=== PATIENT | female | born 1985 | race Asian ===

== ENCOUNTER 2017-11-21 10:21 | Emergency (ER) | payer OTHER ==
--- NOTE | 2017-11-21 12:43 | UC ---
- HPI Summary HPI Summary: Pt. is a 32-year-old female who presents to the urgent care for a possible miscarriage. She states her last normal menstrual cycle was the first week of October. She states she took a home test last week which was positive. She states a few days ago she had a bowel movement and noticed blood in the toilet which she believes came from her vagina. History of a miscarriage. A1. Patient also complains of some lower abdominal soreness and low back pain. She denies fever, chills. Admits to nausea without vomiting. Denies dysuria. Symptoms are moderate in severity. No current modifying factors. She is unsure of her blood type but states she believes it is Rh positive and states she does not believe she received rhogam her last . Also notes increased fatigue and nausea without vomiting. - History of Current Complaint Chief Complaint: UCGU Stated Complaint: HCG BLOOD TEST Time Seen by Provider: 11/21/17 11:44 Hx Obtained From: Patient Pain Intensity: 0 - Assessment Hx Now: Yes Hx Hysterectomy: No - Allergies/Home Medications Allergies/Adverse Reactions: Allergies Allergy/AdvReac Type Severity Reaction Status Date / Time No Known Allergies Allergy Verified 11/21/17 11:53 Home Medications: Home Medications Pnv No.95/Ferrous Fum/Folic AC [ Multivitamin Tablet] 1 tab PO DAILY [History Confirmed 11/21/17] PMH/Surg Hx/FS Hx/Imm Hx Previously Healthy: Yes - Surgical History Surgical History: None - Social History Occupation: Unemployed Lives: With Family Alcohol Use: None Substance Use Type: None Smoking Status (MU): Never Smoked Tobacco Review of Systems Gastrointestinal: Abdominal Pain, Nausea Genitourinary: Abnormal Bleeding All Other Systems Reviewed And Are Negative: Yes Physical Exam - Physical Exam Triage Information Reviewed: Yes Vital Signs Reviewed: Yes Appearance: Positive: Well-Appearing - Pt. sitting on exam table in NAD. Skin: Positive: Warm, Dry Head/Face: Positive: Normal Head/Face Inspection Eyes: Positive: Conjunctiva Clear Neck: Positive: Supple Abdomen Description: Positive: Nontender, Soft Neurological: Positive: Normal, CN Intact II-III Psychiatric: Positive: Affect/Mood Appropriate Course/Dx - Course Course Of Treatment: Pt. presenting for possible early . She is afebrile with stable vital signs. Pt. has a benign abd. exam. She has no vaginal bleeding or discharge today. Pt. recently moved the area and has no medical history in the system. She does admit t oa small amount of vaginal bleeding several days ago. Pt. states she believes her blood type is Rh positive. Urine is positive. U/A shows small ketones, protein and leukocytes, will send for culture. Pt. was able to get a copy of recent blood work from her last electronically and blood type is O+. Case discussed with Dr. Bean who recommends ordering U/S today in to evaluate for IUP and obtain labs that will return tomorrow. Labs drawn. U/S per radiology shows IMPRESSION: INTRAUTERINE GESTATION AT 6 WEEKS 3 DAYS BASED ON CROWN-RUMP LENGTH WITH. CONFIRMATION OF CARDIAC PULSATIONS. SMALL PERIGESTATIONAL HEMATOMA. LEFT OVARIAN CYST. SUGGEST FOLLOW-UP, reading per radiology. Results discussed. will call pt. tomorrow for lab results. Advised to call OB tomorrow for a sooner apt. Advised to increase fluids and rest. Eat small frequent meals. Can try vitamin B6 for nausea. To go to the ER for abdominal pain, bleeding or if concerned. Pt. understands and agrees with plan. - Differential Diagnosis/HQI/PQRI: Spontaneous , Ectopic , First Trimester Bleeding, Rh Incompatibility, Vaginal Bleeding - Diagnoses Provider Diagnoses: Early stage of Discharge - Sign-Out/Discharge Documenting (check all that apply): Patient Departure - Discharge Plan Condition: Good Disposition: HOME Patient Education Materials: Nausea and Vomiting in (ED), ( ED) Referrals: No Primary Care Phys,NOPCP [Primary Care Provider] - Naz Milton MD [Medical Doctor] - Additional Instructions: Call the OB office tomorrow to schedule a sooner appointment Increase fluids and rest Eat small frequent meals Can try taking over the counter vitamin B6 for nausea Will call tomorrow with lab results Go to the ER for abdominal pain, vaginal bleeding or if concerned - Billing Disposition and Condition Condition: GOOD Disposition: Home
--- NOTE | 2017-11-21 14:00 | RAD ---
INDICATION: Early with bleeding COMPARISON: None TECHNIQUE: Transvaginal scans were obtained for early evaluation FINDINGS: Transvaginal scans show an early intrauterine gestation with identification of the pole, yolk sac and cardiac pulsations of 111 bpm. The crown-rump length corresponds to a 6 week 3 day gestation and the sac size corresponds to 6 week 6 day gestation. There is a hypoechoic collection adjacent to the sac likely related to a. Gestational hematoma. This measures 3.0 x 1.5 x 3.0 cm. There is a small amount of free fluid left adnexa. The right ovary measures 2.4 x 1.0 x 1.6 centers in the left 4.7 x 4.0 x 4.7 cm. There is a cyst in left ovary measuring 4.1 x 3.3 x 3.9 cm and a probable involuting left ovarian cyst measuring approximately 2 cm. IMPRESSION: INTRAUTERINE GESTATION AT 6 WEEKS 3 DAYS BASED ON CROWN-RUMP LENGTH WITH CONFIRMATION OF CARDIAC PULSATIONS. SMALL PERIGESTATIONAL HEMATOMA. LEFT OVARIAN CYST. SUGGEST FOLLOW-UP.
[2017-11-21 16:25] LABS: ABS Basophils 0 10^3/ul (0-0.2); ABS Eosinophils 0 10^3/ul (0-0.6); ABS Lymphocytes 1.5 10^3/ul (1.0-4.8); ABS Monocytes 0.6 10^3/ul (0-0.8); ABS Neutrophils 7.4 10^3/ul (1.5-7.7); ABS Nucleated RBC 0 10^3/ul; Eosinophil % 0.3 % (0-6); Hematocrit 39 % (35-47); Hemoglobin 13.5 g/dl (12.0-16.0); Lymphocyte % 16.1 % (25-47); Mean Corpuscular HGB Conc 35 g/dl (31-36); Mean Corpuscular Hemoglobin 32 pg (27-31); Mean Corpuscular Volume 91 fL (80-97); Mean Platelet Volume 9.6 um3 (7.4-10.4); Nucleated Red Blood Cells % 0; Platelet Count 227 10^3/ul (150-450); Red Blood Count 4.29 10^6/ul (4.00-5.40); Red Cell Distribution Width 13 % (10.5-15); White Blood Count 9.5 10^3/ul (3.5-10.8)
--- NOTE | 2017-11-22 11:17 | UC ---
- Progress Note Progress Note: [facility]ari [id number] progesteron 20 no change ljj 11/22/2017 Course/Dx - Diagnoses Provider Diagnoses: Early stage of Discharge - Sign-Out/Discharge Documenting (check all that apply): Post-Discharge Follow Up - Discharge Plan Condition: Good Disposition: HOME Patient Education Materials: Nausea and Vomiting in (ED), ( ED) Referrals: Naz Milton MD [Medical Doctor] - No Primary Care Phys,NOPCP [Primary Care Provider] - Additional Instructions: Call the OB office tomorrow to schedule a sooner appointment Increase fluids and rest Eat small frequent meals Can try taking over the counter vitamin B6 for nausea Will call tomorrow with lab results Go to the ER for abdominal pain, vaginal bleeding or if concerned - Billing Disposition and Condition Condition: GOOD Disposition: Home
== END 2017-11-21 14:55 | disposition home or self-care (01) ==
LOC: UCEAST 10:21
DX: O99.89 Other specified diseases and conditions complicating pregnancy, childbirth and the puerperium (principal); R10.30 Lower abdominal pain, unspecified; M54.5 Low back pain; R53.83 Other fatigue; O21.9 Vomiting of pregnancy, unspecified
CPT/HCPCS: 36415; 76817; 81003; 84144; 84443; 84702; 85025; 86900; 86901; 87077; 87086; 99201; G0463

== ENCOUNTER 2018-07-16 14:32 | Inpatient (IN) | payer OTHER ==
[2018-07-16] MEDS ORDERED: Dinoprostone* 10 MG VAG.SUPP VAGINAL ONE (15:55)
[2018-07-16] MEDS ORDERED: Buffered Lidocaine 1% SYRIN* 1 ML/SYRINGE INTRADERM ONE (15:55)
[2018-07-16] MEDS ORDERED: Lactated Ringers 1000 ML Bag* 1,000 ML IV ONE (15:55)
[2018-07-16] MEDS ORDERED: Lactated Ringers 1000 ML Bag* 1,000 ML IV SCH (16:00)
--- NOTE | 2018-07-16 16:08 | HP ---
General Information - Reason for Visit Patient scheduled for cervical ripening and induction after growth ultrasound 07/15 showed increased cord doppler ratio of 3.3 and decrease in size percentile from 35%ile @ 32 weeks to 25%ile @ 39 weeks with lagging AC measurement. - General Information Maternal Age: 33 Grav: 2 Para: 0 SAB: 1 IEA: 0 Estimated Due Date: 07/16/18 Determined By: LMP Maternal Blood Type and Rh: O Positive - Results this Serology/RPR Result: Non-Reactive Rubella Result: Immune HBsAg Result: Negative HIV Result: Negative GBS Culture Result: Positive Past Medical History Delivery History: See Records Delivery History Comment: No previous deliveries Pertinent Past Medical History: Non-Contributory Pertinent Past Surgical History: None Pertinent Family History: Non-Contributory Family History Comment: cancer - Antepartal Records Antepartal Records: Reviewed, Complicated by: - GBS positive Review of Systems Constitutional: Comfortable CV Complaint: No Respiratory: Shortness of Breath: No Gastrointestinal: No Nausea/Vomiting, Normal Bowel Movement Genitourinary: No Dysuria, No Bleeding, No Leaking Fluid Musculoskeletal: No Complaint Neurological: No Headache, No Visual Changes Exam Allergies/Adverse Reactions: Allergies No Known Allergies Allergy (Verified 11/21/17 11:53) BP 126/75 T 97.9 HR 92 O2 100 RR 20 - Measurements Height: 5 ft 3 in Weight: 135 lb Weight in lbs: 135.883150 Body Mass Index (BMI): 23.9 Pre- Weight: 101 lb Weight Gained This : 34 lbs and 0 ozs - Exam Breast: Breast Exam Deferred CVA: No CVA Tenderness Extremities: No Edema Heart: Normal Rhythm/Heart Sounds HEENT: No Significant Findings Lungs: Clear Bilaterally Rectal: Rectal Exam Deferred Reflexes: DTR 2+, - - no clonus - Abdominal Exam Abdomen Exam: Non-Tender - Ultrasound/Biophysical Profile Ultrasound Status: Not Done Targeted Exam Findings Estimated Weight: 7lb Cervical Exam: Closed Effacement: Thick Station: -1 Presenting Part: Vertex Membrane Status: Intact Bleeding/Discharge: None EFM Findings - External Monitor Findings Baseline Heart Rate: 135 External Monitor Findings: Accelerations Present, No Pattern of Variable or Late Decelerations, Variability Moderate Contractions: None Assessment/Plan - Assessment IUP @ 39+6 weeks gestation for cervical ripening and induction of labor. Suspected IUGR with lagging AC measurement, decrease in estimated percentile of growth and increased cord doppler ratio. Intact membranes. No evidence metabolic acidemia. - Obstetrical Risk Factors Obstetrical Risk Factors: GBS Positive, IUGR - Plan Plan: Induction, Cervical Ripening, Admit - Anticipate Vaginal Delivery Plan Comment: Admit to L&D. PARQ discussion of Cervidil for cervical ripening, all questions answered and patients in agreement. Patient planning epidural for pain management. Will hold off on initiating IV access until active labor or ROM and begin GBS prophylaxis. Anticipate SVB. - Date/Time of Admission Date of Admission: 07/16/18 Time of Admission: 16:10
[2018-07-16] MEDS ORDERED: Promethazine INJ(RESTRICTED)* 25 MG/ML 1 ML VIAL IM PRN (21:20)
[2018-07-16] MEDS ORDERED: Nalbuphine* 10 MG/ML 1 ML VIAL IM PRN (21:20)
--- NOTE | 2018-07-16 21:26 | PN ---
Progress Note - Progress Note Date of Service: 07/16/18 Note: Patient comfortable, no cramps or contractions. Discussed PRN Nubain/Phenergan and order placed. Instructed on overnight monitoring and plan for Cervidil removal by 0700 tomorrow with continued cervical ripening vs IOL. Questions answered, patient verbalized understanding.
[2018-07-17] MEDS ORDERED: Penicillin G Potassium IV* 5,000,000 UNITS in NS 0.9% 100 ML* 100 ML IVPB ONE (09:09)
--- NOTE | 2018-07-17 09:14 | PN ---
Progress Note - Progress Note Date of Service: 07/17/18 Note: S: Pt rested overnight. Cervidil removed at 0700. Denies feeling any uterine contractions. Feeling a little pessimistic about anything happening at this time O: BP 107/71 HR 79 T 98.5 FHT 130bpm. Moderate variability. +Accels. No decels UCs q 2-3 mild VE: external os, 1cm Internal os closed/long/vtx -1 A: IUP at 40-1/7 here for induction for elevated S/D ratio on cord dopplers No evidence of metabolic acidemia P: Given uterine contraction pattern trial low dose pitocin for cervical ripening
[2018-07-17] MEDS ORDERED: Oxytocin in LR* 20 UNITS/1,000 ML BAG IVPB SCH (10:00)
[2018-07-17 10:56] LABS: ABS Basophils 0 10^3/ul (0-0.2); ABS Eosinophils 0.1 10^3/ul (0-0.6); ABS Lymphocytes 1.2 10^3/ul (1.0-4.8); ABS Monocytes 0.7 10^3/ul (0-0.8); ABS Neutrophils 9.4 10^3/ul (1.5-7.7); ABS Nucleated RBC 0 10^3/ul; Eosinophil % 0.5 %; Hematocrit 40 % (35-47); Lymphocyte % 10.6 %; Mean Corpuscular HGB Conc 35 g/dl (31-36); Mean Corpuscular Hemoglobin 34 pg (27-31); Mean Corpuscular Volume 96 fL (80-97); Mean Platelet Volume 9.7 fL (7.4-10.4); Nucleated Red Blood Cells % 0.1; Platelet Count 185 10^3/ul (150-450); Red Blood Count 4.17 10^6/ul (4.00-5.40); Red Cell Distribution Width 14 % (10.5-15); White Blood Count 11.4 10^3/ul (3.5-10.8)
--- NOTE | 2018-07-17 17:10 | PN ---
Progress Note - Progress Note Date of Service: 07/17/18 Note: Late entry. Evaluation happened at 1600 S: Pt had been ambulating and now trying the ball. Reports some cramping and occ stronger UCs. No bloody show. No LOF. Feeling like "nothing is happening yet" O: BP 91/50 HR 76 RR 20 T 98 FHT 130bpm. Moderate variability. +Accels. No decels UCs q 2-3 min on IV Pitocin VE pt refuses at this time A: IUP at 40-05/13 here for induction, no evidence of active labor at this time No evidence of metabolic acidemia P: Con't IV pitocin. Discussed importance of re-assessing cervix at some point. Pt agrees, just not now due to previous discomfort.
--- NOTE | 2018-07-17 19:26 | PN ---
Progress Note - Progress Note Date of Service: 07/17/18 Note: S: Pt comfortable. Notes some mild cramping. Consents to VE O: BP 105/70 HR 94 T 98.4 RR 20 FHT 135bpm. Moderate variability. +Accels. No decels UCs q 2-4 IV pit at 8mu/min VE: 1-2/70%/vtx -1 A: IUP at 40-1/7 in latent labor No evidence of metablic acidemia P: Given benefit from IV pitocin pt prefers to continue for the next few hours. Aware that rest from pitocin will be recommended at some point if no onset active labor. Pt may want to sleep. Discussed balloon catheter but given pt's dislike of VE not thrilled with idea. Will consider. Continue to monitor
--- NOTE | 2018-07-17 21:59 | PN ---
Progress Note - Progress Note Date of Service: 07/17/18 Note: S: IV pitocin off. Pt denies feeling any UCs at this time. Had scant bloody show when up to the bathroom. No heavy bleeding. Denies LOF. Reports active FM. Strong preference to avoid balloon catheter placement due to discomforts with exam O: BP 112/67 HR 84 T 98.4 RR 20 FHT 135bpm. Moderate variability. +Accels. No decels UCs q 5, mild VE pt declines A: IUP at 40-1/7 here for IOL No evidence of metabolic acidemia P: Enc pt to rest. If UCs strengthen overnight or suspect SROM to call out for evaluation. Otherwise will re-eval in the morning at which time pt agrees to internal VE
[2018-07-18] MEDS ORDERED: Oxytocin in LR* 20 UNITS/1,000 ML BAG IVPB SCH (09:00)
--- NOTE | 2018-07-18 12:18 | PN ---
Progress Note - Progress Note Date of Service: 07/18/18 Note: Starting to feel contractions, approx every 2-3 min Cervix: 4 cm, 70-80%, vtx -1. Difficult to examine Wants to wait on epidural, AROM. Will continue pitocin for now.
--- NOTE | 2018-07-18 17:13 | PN ---
Progress Note - Progress Note Date of Service: 07/18/18 Note: more uncomfortable Cervix: posterior , 5-6 cm. 70% still, vtx -1 Will get epidural, then AROM, will start PCN prophylaxis
[2018-07-18] MEDS ORDERED: OBEPIDURAL* 250 ML EPIDURAL ONE (17:42)
[2018-07-18] MEDS ORDERED: Lactated Ringers 1000 ML Bag* 1,000 ML IV ONE (18:34)
[2018-07-18] MEDS ORDERED: Phenylephrine IV* 40 MCG/ML 10 ML SYRINGE IV PUSH PRN ×2 (18:34)
[2018-07-18] MEDS ORDERED: Lactated Ringers 1000 ML Bag* 500 ML IV PRN ×2 (18:34)
[2018-07-18] MEDS ORDERED: Sodium Citrate/Citric Acid* 15 ML UDC PO PRN (18:34)
[2018-07-18] MEDS ORDERED: Famotidine TAB* 20 MG PO PRN (18:34)
[2018-07-18] MEDS ORDERED: OBEPIDURAL* 250 ML EPIDURAL SCH (19:00)
[2018-07-18] MEDS ORDERED: Lactated Ringers 1000 ML Bag* 1,000 ML IV SCH (19:00)
--- NOTE | 2018-07-18 19:35 | PN ---
Progress Note - Progress Note Date of Service: 07/18/18 Note: Very comfortable after epidural Cervix 7, 70%, vtx -1 AROM 1930, clear, blood tinged fluid
[2018-07-18] MEDS: Penicillin G Potassium IV* 2,500,000 UNITS in NS 0.9% 100 ML* 100 ML IVPB SCH (21:19)
[2018-07-19] MEDS: Penicillin G Potassium IV* 2,500,000 UNITS in NS 0.9% 100 ML* 100 ML IVPB SCH ×3 (01:39→08:50)
--- NOTE | 2018-07-19 04:25 | PN ---
Progress Note - Progress Note Date of Service: 07/19/18 Note: concerned because "taking too long." Cervix: 7cm/90%, vtx 0 IUPC attempted without success. Contractions palpate as adequate Reassured with progress as cervix has thinned considerably Will continue
--- NOTE | 2018-07-19 07:52 | PN ---
Progress Note - Progress Note Date of Service: 07/19/18 Note: feeling pressure Cervix: ant lip, 100%, vtx 0 Temp 100.1
[2018-07-19] MEDS ORDERED: Acetaminophen TAB* 325 MG PO ONE (09:07)
[2018-07-19] MEDS ORDERED: Acetaminophen TAB* 325 MG ONE (09:09)
[2018-07-19] MEDS ORDERED: NS 0.9% IVPB ONE (09:20)
[2018-07-19] MEDS ORDERED: GENTAMICIN ADULT IVPB ONE (09:20)
--- NOTE | 2018-07-19 09:22 | PN ---
Progress Note - Progress Note Date of Service: 07/19/18 Note: Quick Note: Maternal temp in labor. Impression: chorioamnionitis. Will discontinue IV pencillin and start ampicillin and gentamicin for broad spectrum coverage. Tylenol also given. Consult Dr. Madison who agrees with plan.
--- NOTE | 2018-07-19 09:47 | PN ---
Progress Note - Progress Note Date of Service: 07/19/18 Note: S: Pt in side lye with multiple blankets. Feeling shivery with elevated temp in labor O: BP 102/57 HR 90 T 101.2 FHT 160bpm. Moderate variability. +Accels. No decels UCs q 3 IV pitocin at 14mu/min VE: edematous anterior lip. Unable to reduce/vtx 0 station A: IUP at 40-3/7 in labor No evidence of metabolic acidemia Maternal temp in labor, suspect chorioamnionitis P: PO Tylenol and IV ampicillin and gentamicin orders in. Discussed positioning and will re-check in 1 hour, sooner PRN. Close monitoring of maternal/ status. Dr. Madison aware of pt presence and condition. Agrees with plan
[2018-07-19] MEDS: Ampicillin ADVAN(*) 2 GM in NS 0.9% 100 ML* 100 ML IVPB SCH ×4 (10:22→23:28)
--- NOTE | 2018-07-19 11:31 | PN ---
Progress Note - Progress Note Date of Service: 07/19/18 Note: S: Pt feeling better s/p Tylenol and IV antibiotics but still warm. Vaginal pressure remains unchanged O: BP 103/50 HR 95 T 100.4 at 1030 s/p Tylenol FHT 150bpm. Min-mod variability. Variable decels with UCs, rapid recovery to baseline UCs irregular. IV pitocin off now VE: persistant anterior lip, edematous/vtx 0 +caput A: IUP at 40-3/7 in active labor No cervical change Chorioamnionitis Cat II FHT, bears close monitoring P: Recommend pLTCS. Pt tearful as was really hoping to avoid but verbalizes understanding of recommendation. Dr. Madison aware and will come to bedside to consent pt. Anesthesia and neonatology both in house.
--- NOTE | 2018-07-19 12:10 | PN ---
Progress Note - Progress Note Date of Service: 07/19/18 Note: Pt at 40+ wks admitted on for induction considering some concern for SGA with lagging AC. After nearly 3 days, cervix has not progressed past an edematous anterior lip and she developed chorioamnionitis a few hours ago. Pt now on Amp/Gent. I now recommend a primary section, and pt agrees. We discussed delivery at length. We reviewed the risks including hemorrhage, transfusion, infection, organ injury , anesthesia complications, DVT, and even . All questions were discussed and consent signed.
[2018-07-19] MEDS ORDERED: Ondansetron INJ* 2 MG/ML VIAL ONE (12:21)
[2018-07-19] MEDS ORDERED: OXYTOCIN* 10 UNITS/ML 1 ML VIAL ONE (12:21)
[2018-07-19] MEDS ORDERED: Ketorolac INJ* 30 MG/ML 1 ML VIAL ONE (12:21)
[2018-07-19] MEDS ORDERED: Dexamethasone IV* 4 MG/ML 1 ML (4 MG) ONE (12:21)
[2018-07-19] MEDS ORDERED: Lidocaine 2% PF* 10 ML AMP ONE (12:21)
[2018-07-19] MEDS ORDERED: Scopolamine 1.5 mg* PATCH ONE (12:21)
[2018-07-19] MEDS ORDERED: EPHEDrine (Pressors)* 50 MG/ML VIAL ONE (12:21)
[2018-07-19] MEDS ORDERED: Lidocaine 2% EPI 1:200000 MPF*10-20 ML VIAL ONE (12:21)
[2018-07-19] MEDS ORDERED: fentaNYL* 50 MCG/ML 2 ML VIAL (100 MCG VIAL) ONE (12:22)
[2018-07-19] MEDS ORDERED: Midazolam* 1 MG/ML 5 ML VIAL (5 MG) ONE (12:22)
[2018-07-19] MEDS ORDERED: Morphine PF AMP (0.5MG/ML)* 5 MG/10 ML AMP ONE (12:22)
[2018-07-19] MEDS ORDERED: KETAMINE HCL* 50 MG/ML 10 ML VIAL ONE (12:22)
[2018-07-19] MEDS ORDERED: Ketorolac INJ* 30 MG/ML 1 ML VIAL IV PRN (13:01)
[2018-07-19] MEDS ORDERED: Scopolamine 1.5 mg* PATCH TRANSDERM PRN (13:01)
[2018-07-19] MEDS ORDERED: DiMENhydriNATE IV* 50 MG/ML VIAL IV PUSH PRN (13:01)
[2018-07-19] MEDS ORDERED: Nalbuphine* 10 MG/ML 1 ML VIAL IV PRN (13:01)
[2018-07-19] MEDS ORDERED: Naloxone* 0.4 MG/ML 1 ML VIAL IV PRN ×2 (13:01→13:05)
[2018-07-19] MEDS ORDERED: Naloxone* 2 MG in NS 0.9% 250 ML* 250 ML IV PRN (13:01)
[2018-07-19] MEDS ORDERED: PROCHLORPERAZINE INJ 5 MG/ML 2 ML VIAL IV PRN (13:01)
[2018-07-19] MEDS ORDERED: Ondansetron INJ* 2 MG/ML VIAL IV PRN (13:01)
[2018-07-19] MEDS ORDERED: oxyCODONE/Acetamin 5/325 MG* TAB PO PRN (13:01)
[2018-07-19] MEDS ORDERED: fentaNYL* 50 MCG/ML 2 ML VIAL (100 MCG VIAL) IV PRN (13:05)
[2018-07-19] MEDS ORDERED: Varicella Virus Vaccine Live* 0.5 ML VIAL SUBCUT ONE (13:43)
[2018-07-19] MEDS ORDERED: Witch Hazel PAD* JAR TOPICAL PRN (13:43)
[2018-07-19] MEDS ORDERED: Lactated Ringers 1000 ML Bag* 1,000 ML IV SCH (14:00)
[2018-07-19] MEDS: Clindamycin 900 MG/D5W BAG(*) 900 MG/50 ML BAG IVPB SCH ×2 (15:45→22:59)
[2018-07-19] MEDS ORDERED: NS 0.9% 100 ML* 0 ML ONE (16:37)
[2018-07-19] MEDS: Simethicone TAB* 80 MG TAB.CHEW PO SCH ×2 (17:47→21:41)
[2018-07-19] MEDS ORDERED: NS 0.9% 100 ML* 100 ML ONE (21:29)
[2018-07-19] MEDS: Docusate CAP* 100 MG PO SCH (21:41)
--- NOTE | 2018-07-20 01:37 | OP ---
DATE OF OPERATION: 07/19/18 - ROOM #103 DATE OF : 87 SURGEON: Agnieszka Madison MD BRICK TENDER: Malu Fuentes CNM ANESTHESIOLOGIST: Dr. Perkins. ANESTHESIA: Epidural. PRE-OP DIAGNOSIS: Arrest of dilation and chorioamnionitis. POST-OP DIAGNOSIS: Arrest of dilation and chorioamnionitis. OPERATIVE PROCEDURE: Primary low-transverse section. ESTIMATED BLOOD LOSS: 700 cc. URINE OUTPUT: 425 cc. IV FLUIDS: 600 cc lactated Ringer's. MATERIALS TO LAB: Placenta and cord blood. INDICATIONS: This patient was a 33-year-old 2, para 0, who was admitted 3 days ago for induction of labor due to concern for the fetus being somewhat small for gestational age with especially lagging abdominal circumference. The patient had slow progress in her induction but by today reached cervical dilatation of over 9 cm. However, the cervix did not progress past this point. In addition, the patient this morning developed a temperature of 101 and was diagnosed with chorioamnionitis. She was started on IV antibiotics but the cervix still did not have any significant change. Considering the arrest of dilation, the patient was counseled for a section and consent was signed. The patient and her agreed with the plan. FINDINGS: Normal-appearing uterus, fallopian tubes, and ovaries. Delivery is productive of a male infant weighing 7 pounds 1 ounce with Apgars of 8 and 9. Time of delivery was 12:53. Of note, the head had not descended very far into the pelvis. COMPLICATIONS: None. DESCRIPTION OF PROCEDURE: The risks, benefits, and alternatives were described to the patient and informed consent was obtained. The patient was taken to the operating room with IV running where epidural anesthesia was induced and found to be adequate. The patient was prepped and draped in the normal sterile fashion in the dorsal supine position with leftward tilt. A Pfannenstiel skin incision was made with a scalpel and this was carried down to the underlying fascia sharply. The fascia was then scored in the midline with the scalpel. The incision was extended using Mancia scissors. The rectus muscles were dissected off the rectus fascia using blunt and sharp dissection. The rectus muscles were in the midline bluntly. The peritoneum was also entered bluntly. A bladder blade was placed. A bladder flap was created sharply using Metzenbaum scissors. A low transverse uterine incision was made with the scalpel. This was carried down to the amniotic cavity which was productive of clear fluid. The incision was extended with blunt traction. The head was elevated to the level of the incision without difficulty and delivered through the incision. With fundal pressure, the shoulders and body delivered without difficulty. The had an excellent tone and cried immediately on delivery. The cord was doubly clamped and cut. The infant was then handed to the awaiting milk tanker driver. Cord blood was collected. The placenta then delivered with manual extraction. The uterus was then exteriorized and cleared of all clots and debris. Uterine incision was reapproximated using 0 Polysorb in a running-locked fashion. A second layer of imbricating sutures of 0 Polysorb was also placed with good hemostasis. The posterior cul-de-sac was irrigated with saline. The uterus was then returned to the abdomen, and the incision was reinspected and noted to be hemostatic. The peritoneum was closed with 2-0 chromic in a running fashion. The fascia was closed with 0 Polysorb in a running fashion. Subcutaneous tissues were reapproximated using 2-0 chromic and interrupted sutures. The skin was then closed with 4-0 Monocryl in a subcuticular stitch. Mastisol and Steri-Strips were placed over the incision which was then covered with a sterile bandage. The patient tolerated the procedure well. Sponge, lap, and needle counts were correct x2. [id number]/[facility] #: [id number] MTDD
[2018-07-20] MEDS ORDERED: oxyCODONE/Acetamin 5/325 MG* TAB PO PRN (05:00)
[2018-07-20] MEDS ORDERED: NS 0.9% 100 ML* 100 ML ONE (05:34)
[2018-07-20] MEDS: Ampicillin ADVAN(*) 2 GM in NS 0.9% 100 ML* 100 ML IVPB SCH ×2 (05:38→11:45)
[2018-07-20] MEDS: Clindamycin 900 MG/D5W BAG(*) 900 MG/50 ML BAG IVPB SCH (06:11)
[2018-07-20 06:15] LABS: ABS Basophils 0.2 10^3/ul (0-0.2); ABS Eosinophils 0 10^3/ul (0-0.6); ABS Lymphocytes 1.3 10^3/ul (1.0-4.8); ABS Neutrophils 15.9 10^3/ul (1.5-7.7); ABS Nucleated RBC 0 10^3/ul; Eosinophil % 0 %; Hematocrit 31 % (33-41); Hemoglobin 10.8 g/dL (12.0-16.0); Mean Corpuscular HGB Conc 34 g/dL (31-36); Mean Corpuscular Hemoglobin 33 pg (27-31); Mean Corpuscular Volume 97 fL (80-97); Mean Platelet Volume 9.6 fL (7.4-10.4); Nucleated Red Blood Cells % 0; Platelet Count 155 10^3/uL (150-450); Red Blood Count 3.25 10^6 /uL (3.70-4.87); Red Cell Distribution Width 14 % (10.5-15); White Blood Count 18.4 10^3/uL (3.5-10.8)
[2018-07-20] MEDS: Ibuprofen TAB* 600 MG PO PRN ×3 (06:29→19:30)
[2018-07-20] MEDS: Docusate CAP* 100 MG PO SCH ×2 (08:14→21:07)
[2018-07-20] MEDS: Acetaminophen TAB* 325 MG PO PRN ×3 (08:14→16:43)
[2018-07-20] MEDS: Simethicone TAB* 80 MG TAB.CHEW PO SCH ×4 (08:14→21:06)
[2018-07-20] MEDS ORDERED: NS 0.9% IVPB ONE (09:00)
[2018-07-20] MEDS ORDERED: GENTAMICIN ADULT IVPB ONE (09:00)
[2018-07-20] MEDS ORDERED: Ferrous Gluconate TAB* 324 MG TAB PO SCH (09:00)
[2018-07-20] MEDS: oxyCODONE/Acetamin 5/325 MG* TAB PO PRN (22:25)
[2018-07-21] MEDS: Ibuprofen TAB* 600 MG PO PRN ×4 (01:28→20:31)
[2018-07-21] MEDS: oxyCODONE/Acetamin 5/325 MG* TAB PO PRN (04:20)
[2018-07-21] MEDS: Simethicone TAB* 80 MG TAB.CHEW PO SCH ×4 (08:07→20:31)
[2018-07-21] MEDS: Docusate CAP* 100 MG PO SCH ×2 (08:07→20:31)
[2018-07-21] MEDS: Acetaminophen TAB* 325 MG PO PRN ×3 (12:29→22:28)
[2018-07-22] MEDS: Ibuprofen TAB* 600 MG PO PRN ×2 (03:54→10:51)
[2018-07-22] MEDS: Acetaminophen TAB* 325 MG PO PRN (07:43)
[2018-07-22] MEDS: Simethicone TAB* 80 MG TAB.CHEW PO SCH (07:43)
[2018-07-22 08:03] VITALS: BP 109/64
--- NOTE | 2018-07-22 09:56 | PTEDU ---
Patient Name: PATRICIA STEARNS PATRICIA STEARNS selected video: Follow Me Mum: [employer] [facility] [employer] to view on 9 at 9:55:38 AM [id number]
[2018-07-22] MEDS: Docusate CAP* 100 MG PO SCH (10:51)
[2018-07-22] MEDS ORDERED: Scopolamine PATCH Remove* 1 NOTE MISC PATCH OFF PRN (13:03)
== END 2018-07-22 12:59 | disposition home or self-care (01) | DRG 786 ==
LOC: MCHOBOUT 14:32 → MCHOB 16:36
PROVIDERS: ADMIT Midwife; ATTEND Obstetrics & Gynecology
PROC: 3E033VJ Introduction of Other Hormone into Peripheral Vein, Percutaneous Approach (ICD-10-PCS; 2018-07-19)
PROC: 10907ZC Drainage of Amniotic Fluid, Therapeutic from Products of Conception, Via Natural or Artificial Opening (ICD-10-PCS; 2018-07-19)
PROC: 10D00Z1 Extraction of Products of Conception, Low, Open Approach (ICD-10-PCS; principal; 2018-07-19 12:23)
DX: O32.4XX0 Maternal care for high head at term, not applicable or unspecified (principal); O41.1230 Chorioamnionitis, third trimester, not applicable or unspecified; O36.5930 Maternal care for other known or suspected poor fetal growth, third trimester, not applicable or unspecified; O99.824 Streptococcus B carrier state complicating childbirth; O48.0 Post-term pregnancy; Z3A.40 40 weeks gestation of pregnancy; Z37.0 Single live birth
CPT/HCPCS: 36415; 85025; 86850; 86900; 86901; 88307; A9270-GY; J1100; J1580; J1885; J2001; J2250; J2405; J2540; J2590; J3010